=== PATIENT | male | born 1985 | race Caucasian/White ===

== ENCOUNTER 2024-04-03 11:08 | Inpatient (IN) | payer OTHER ==
[~2024-04-03] VITALS: Ht 175.3 cm; Wt 90.7 kg
[2024-04-03 11:35] VITALS: BP 132/81; PULSE 118; RESP 20; TEMP 99; O2SAT 94
[2024-04-03] MEDS ORDERED: NACL 0.9% 1,000 ML IV ONE (12:20)
[2024-04-03 12:47] LABS: BASOPHILS % (AUTO) 0.3 % (0.0-2.0); EOSINOPHILS % (AUTO) 0.3 % (0.0-4.0); HEMATOCRIT 47.6 % (36-52); HEMOGLOBIN 15.9 g/dL (12.0-18.0); LYMPHOCYTES # (AUTO) 2.2 K/uL (2.0-11.5); LYMPHOCYTES % (AUTO) 18.2 % (20.5-51.1); MEAN CORPUSCULAR HEMOGLOBIN 30 pg (27-31); MEAN CORPUSCULAR HGB CONC 33 g/dL (33-37); MONOCYTES # (AUTO) 1.2 K/uL (0.8-1.0); MONOCYTES % (AUTO) 10.2 % (1.7-9.3); NEUTROPHILS # (AUTO) 8.4 K/uL (1.8-7.7); PLATELET COUNT (AUTO) 243 K/uL (140-450); RED BLOOD CELL COUNT(AUTO) 5.35 MIL/uL (4.20-6.10); RED CELL DISTRIBUTION WIDTH 12.9 % (11.6-13.7); WHITE BLOOD COUNT (AUTO) 11.8 K/uL (4.8-10.8)
[2024-04-03] MEDS: NACL 0.9% 1,000 ML IV SCH ×2 (12:54→17:58)
[2024-04-03 12:55] LABS: ANION GAP 11.7 (8-16); CALCIUM 8.6 mg/dL (8.5-10.1); CARBON DIOXIDE 30.8 mmol/L (21-32); CREATININE 1.3 mg/dL (0.6-1.3); POTASSIUM 3.5 mmol/L (3.5-5.1)
[2024-04-03] MEDS: KETOROLAC 30 MG/ML VIAL IVP ONE (13:04)
[2024-04-03 13:05] LABS: ALBUMIN 3.6 g/dL (3.4-5.0); BILIRUBIN,DIRECT 0.2 mg/dL (0.0-0.3); TOTAL BILIRUBIN 0.8 mg/dL (0.0-1.0); TOTAL PROTEIN, SERUM 7.4 g/dL (6.4-8.2)
[2024-04-03 13:08] LABS: LACTIC ACID 0.9 mmol/L (0.4-2.0)
[2024-04-03] MEDS ORDERED: ONDANSETRON 4 MG/2 ML VIAL IVP PRN (14:30)
[2024-04-03] MEDS ORDERED: MAGNESIUM OXIDE 400 MG TAB PO PRN (14:30)
[2024-04-03] MEDS ORDERED: KCL 20 MEQ IN 100 mL PREMIX 200 ML IV PRN (14:30)
[2024-04-03] MEDS ORDERED: ACETAMINOPHEN 325 MG TAB PO PRN (14:30)
[2024-04-03 14:36] LABS: APPEARANCE,URINE CLEAR (CLEAR); BILIRUBIN,URINE 1+ (NEGATIVE); BLOOD, URINE NEGATIVE (NEGATIVE); COLOR,URINE YELLOW (YELLOW); LEUKOCYTE ESTERASE ,URINE NEGATIVE (NEGATIVE); NITRITE, URINE NEGATIVE (NEGATIVE); PROTEIN,URINE TRACE (NEGATIVE); UGLUCOSE NEGATIVE (NEGATIVE); UROBILINOGEN,URINE >=8.0 EU/dL (0.2 - 1)
[2024-04-03 14:55] VITALS: O2SAT 95
[2024-04-03 14:56] LABS: ICTOTEST NEGATIVE (NEGATIVE)
[2024-04-03 14:57] LABS: BACTERIA,URINE FEW /HPF (None Seen); MUCUS,URINE None Seen /LPF (None Seen); RBC,URINE 0-5 /HPF (0-5); SQUAMOUS EPITHELIAL CELL,UR FEW /LPF (0-3 (FEW)); WBC,URINE 0-5 /HPF (0-5)
[2024-04-03 16:05] VITALS: PULSE 97
[2024-04-03] MEDS: MORPHINE SULFATE 4 MG/ML SYR IVP PRN (17:57)
[2024-04-03] MEDS: metroNIDAZOLE 500 MG TAB PO SCH (17:57)
[2024-04-03 20:00] VITALS: BP 139/93; PULSE 100; PULSE 94; RESP 18; TEMP 98.2; O2SAT 95
[2024-04-04] VITALS (7 sets, daily range): BP systolic 115–134; BP diastolic 80–92; PULSE 81–104; RESP 16–20; TEMP 97–98.5; O2SAT 95–96
[2024-04-04 06:43] LABS: BASOPHILS % (AUTO) 0.2 % (0.0-2.0); EOSINOPHILS # (AUTO) 0.1 K/uL (0-0.4); EOSINOPHILS % (AUTO) 1.4 % (0.0-4.0); HEMATOCRIT 43.5 % (36-52); HEMOGLOBIN 14.6 g/dL (12.0-18.0); LYMPHOCYTES # (AUTO) 2.2 K/uL (2.0-11.5); LYMPHOCYTES % (AUTO) 20.4 % (20.5-51.1); MEAN CORPUSCULAR HEMOGLOBIN 30 pg (27-31); MEAN CORPUSCULAR HGB CONC 34 g/dL (33-37); MEAN CORPUSCULAR VOLUME 88.9 fL (80-94); MONOCYTES # (AUTO) 1.1 K/uL (0.8-1.0); MONOCYTES % (AUTO) 10.2 % (1.7-9.3); NEUTROPHILS # (AUTO) 7.3 K/uL (1.8-7.7); NEUTROPHILS % (AUTO) 67.8 % (42.2-75.2); PLATELET COUNT (AUTO) 255 K/uL (140-450); RED BLOOD CELL COUNT(AUTO) 4.89 MIL/uL (4.20-6.10); RED CELL DISTRIBUTION WIDTH 12.6 % (11.6-13.7); WHITE BLOOD COUNT (AUTO) 10.7 K/uL (4.8-10.8)
[2024-04-04 07:04] LABS: ANION GAP 10.9 (8-16); CALCIUM 8.2 mg/dL (8.5-10.1); CARBON DIOXIDE 28.5 mmol/L (21-32); CREATININE 1.2 mg/dL (0.6-1.3); POTASSIUM 3.4 mmol/L (3.5-5.1)
[2024-04-04] MEDS: ENOXAPARIN 40 MG/0.4 ML SYR SUBQ SCH (09:00)
[2024-04-04] MEDS: MEDS-TO-BEDS MC SCH (09:00)
[2024-04-04] MEDS ORDERED: ONDANSETRON 4 MG/2 ML VIAL IVP PRN (10:35)
[2024-04-04] MEDS: LACTATED RINGERS 1,000 ML IV SCH (10:35)
[2024-04-04] MEDS ORDERED: MEPERIDINE 25 MG/ML SYR IVP PRN (10:35)
[2024-04-04] MEDS ORDERED: SEVOFLURANE 250 ML BTL INH ONE (10:37)
[2024-04-04] MEDS: MIDAZOLAM 2 MG/2 ML VIAL ONE (10:40)
[2024-04-04] MEDS: fentaNYL citrate 0.05 MG/ML VIAL ONE (10:41)
[2024-04-04] MEDS: PROPOFOL 200 MG/20 ML VIAL IV ONE (10:43)
[2024-04-04] MEDS: SUCCINYLCHOLINE CHLORIDE 200 MG/10 ML VIAL IVP ONE (10:43)
[2024-04-04] MEDS: DEXAMETHASONE 4 MG/ML VIAL ONE ×2 (10:44)
[2024-04-04] MEDS: METOCLOPRAMIDE 10 MG/2 ML INJ VIAL ONE (10:44)
[2024-04-04] MEDS: ONDANSETRON 4 MG/2 ML VIAL ONE (10:44)
[2024-04-04] MEDS: ROCURONIUM 50 MG/5 ML VIAL IV ONE (10:45)
[2024-04-04] MEDS: ACETAMINOPHEN 100 ML IV SCH (11:00)
[2024-04-04] MEDS: LIDOCAINE/EPI 1% 1:100000 20 ML VIAL INJ ONE (11:13)
[2024-04-04] MEDS: BUPIVACAINE-MPF 0.25% 30 ML VIAL INJ ONE (11:13)
[2024-04-04] MEDS: KETOROLAC 60 MG/2 ML VIAL IM ONE (11:25)
[2024-04-04] MEDS: SUGAMMADEX SODIUM 200 MG/2 ML VIAL IV ONE (11:26)
[2024-04-04] MEDS: ESMOLOL 10 ML IV ONE (11:27)
[2024-04-04] MEDS: HYDROmorphone 1 MG/ML AMP IVP PRN (11:55)
[2024-04-04] MEDS: HYDROmorphone PFS 2 MG/ML SYR ONE (11:55)
[2024-04-04] MEDS: POTASSIUM CHLORIDE 10 MEQ TABER PO PRN (19:27)
[2024-04-04] MEDS: metroNIDAZOLE 500 MG/NS PREMIX 100 ML IV SCH (21:07)
[2024-04-05] VITALS: BP 100/59; PULSE 88; PULSE 91; RESP 18; TEMP 97.3; O2SAT 95
[2024-04-05 07:12] LABS: BASOPHILS % (AUTO) 0.2 % (0.0-2.0); EOSINOPHILS % (AUTO) 0.3 % (0.0-4.0); HEMATOCRIT 41.2 % (36-52); LYMPHOCYTES # (AUTO) 1.8 K/uL (2.0-11.5); LYMPHOCYTES % (AUTO) 16.3 % (20.5-51.1); MEAN CORPUSCULAR HEMOGLOBIN 30 pg (27-31); MEAN CORPUSCULAR HGB CONC 34 g/dL (33-37); MEAN CORPUSCULAR VOLUME 88.3 fL (80-94); MONOCYTES # (AUTO) 0.9 K/uL (0.8-1.0); MONOCYTES % (AUTO) 8.3 % (1.7-9.3); NEUTROPHILS # (AUTO) 8.1 K/uL (1.8-7.7); NEUTROPHILS % (AUTO) 74.9 % (42.2-75.2); PLATELET COUNT (AUTO) 300 K/uL (140-450); RED BLOOD CELL COUNT(AUTO) 4.66 MIL/uL (4.20-6.10); RED CELL DISTRIBUTION WIDTH 12.5 % (11.6-13.7); WHITE BLOOD COUNT (AUTO) 10.9 K/uL (4.8-10.8)
[2024-04-05] MEDS: HYDROcodone/APAP 5/325 MG 1 TAB TAB PO PRN (07:28)
[2024-04-05 07:46] VITALS: PULSE 89; RESP 20; O2SAT 99
[2024-04-05 08:00] VITALS: BP 124/65; PULSE 93; PULSE 95; RESP 20; TEMP 97.1; O2SAT 95
[2024-04-05 08:00] LABS: ANION GAP 11.1 (8-16); CALCIUM 8.5 mg/dL (8.5-10.1); CARBON DIOXIDE 26.9 mmol/L (21-32); CREATININE 0.9 mg/dL (0.6-1.3)
[2024-04-05] MEDS ORDERED: ACET-8905 PO (11:38)
[2024-04-05] MEDS ORDERED: AMOX1TAB15 PO (11:38)
[2024-04-05 14:14] VITALS: BP 125/65; PULSE 68; RESP 20; TEMP 97.1
== END 2024-04-05 15:00 | disposition home or self-care (01) | DRG 234 ==
LOC: MED 11:08 → OBSVTOIN 14:31 → MTU 14:31 → INTOOBSV 04-04 11:06 → OBSVTOIN 04-04 11:06
PROVIDERS: ADMIT Student in an Organized Health Care Education/Training Program; ATTEND Student in an Organized Health Care Education/Training Program
PROC: 0DTJ4ZZ Resection of Appendix, Percutaneous Endoscopic Approach (ICD-10-PCS; principal; 2024-04-04 11:25)
DX: K35.80 Unspecified acute appendicitis (principal); D72.829 Elevated white blood cell count, unspecified; E86.1 Hypovolemia; Z79.899 Other long term (current) drug therapy; Z88.8 Allergy status to other drugs, medicaments and biological substances
CPT/HCPCS: 36415; 80048; 80076; 81001; 83605; 85025; 87040; 87081; 96361; 96365; 96375; 99285; J0330; J0694; J0696; J1100; J1170; J1650; J1885; J2001; J2250; J2270; J2405; J2704; J2765; J3010; J3490; J7060